=== PATIENT | female | born 1990 | race Caucasian/White ===

== ENCOUNTER 2017-07-02 10:14 | Emergency (ER) | payer MEDICAID ==
[~2017-07-02] VITALS: Ht 167.6 cm; Wt 59.0 kg
[2017-07-02 10:14] VITALS: BP 143/75
== END 2017-07-02 12:33 | disposition home or self-care (01) ==
LOC: ER 10:25
DX: K08.89 Other specified disorders of teeth and supporting structures (principal); F17.200 Nicotine dependence, unspecified, uncomplicated
CPT/HCPCS: A4606; Z7610